=== PATIENT | female | born 2000 | race Caucasian/White ===

== ENCOUNTER 2020-11-10 18:57 | Emergency (ER) | payer OTHER ==
[~2020-11-10] VITALS: Ht 154.9 cm; Wt 65.7 kg
[2020-11-10] MEDS ORDERED: novalog SQ (20:07)
--- NOTE | 2020-11-11 01:17 | REPVR ---
PROCEDURE INFORMATION: Exam: CT Head Without Contrast Exam date and time: 11/11/2020 12:31 AM Age: 20 years old Clinical indication: Injury or trauma; Fall; Concussion/head injury TECHNIQUE: Imaging protocol: Computed tomography of the head without contrast. Radiation optimization: All CT scans at this facility use at least one of these dose optimization techniques: automated exposure control; mA and/or kV adjustment per patient size (includes targeted exams where dose is matched to clinical indication); or iterative reconstruction. COMPARISON: No relevant prior studies available. FINDINGS: Brain: No intracranial mass, mass effect or midline shift. No acute intracranial hemorrhage. No CT evidence of acute cortical infarct. Ventricles, cisterns, and sulci are normal in size for age. Paranasal sinuses: Imaged paranasal sinuses are normally aerated. Mastoid air cells: Mastoid air cells and middle ear structures are normally aerated. Orbital cavity: Imaged orbits are unremarkable. Bones/joints: No calvarial fracture or destructive process. Soft tissues: No focal extracranial soft tissue swelling. IMPRESSION: No acute or concerning focal intracranial abnormality. Electronically signed by: Gennaro Lloyd On 11/11/2020 01:17:25 AM
--- NOTE | 2020-11-11 01:18 | REPVR ---
PROCEDURE INFORMATION: Exam: XR Left Forearm Exam date and time: 11/11/2020 12:48 AM Age: 20 years old Clinical indication: Other: Trauma TECHNIQUE: Imaging protocol: XR Left forearm. Views: 2 views. COMPARISON: No relevant prior studies available. FINDINGS: Bones/joints: Bones are aligned normally. No fracture, bone lesion or osteochondral abnormality. Joint spaces of the elbow and wrist are maintained. Soft tissues: No apparent focal soft tissue swelling. No opaque foreign body. IMPRESSION: Normal radiographic series of the forearm. Electronically signed by: Gennaro Lloyd On 11/11/2020 01:18:14 AM
[2020-11-11 02:00] VITALS: BP 123/72
== END 2020-11-11 02:08 | disposition home or self-care (01) ==
LOC: M ED 18:57
DX: R55 Syncope and collapse (principal); S00.83XA Contusion of other part of head, initial encounter; S50.12XA Contusion of left forearm, initial encounter; W18.39XA Other fall on same level, initial encounter; Y92.89 Other specified places as the place of occurrence of the external cause; E10.9 Type 1 diabetes mellitus without complications; Z79.4 Long term (current) use of insulin; Z88.1 Allergy status to other antibiotic agents; Z88.2 Allergy status to sulfonamides; Z88.8 Allergy status to other drugs, medicaments and biological substances; Z91.040 Latex allergy status

== ENCOUNTER 2020-11-14 14:29 | Emergency (ER) | payer OTHER ==
[~2020-11-14] VITALS: Ht 152.4 cm; Wt 66.2 kg
[~2020-11-14 14:29] MED LIST: novalog SQ
[2020-11-14 14:30] VITALS: BP 142/86
[2020-11-14] MEDS ORDERED: NOVOINJ3 SC (15:17)
[2020-11-14] MEDS ORDERED: ACET-683 PO (15:17)
[2020-11-14 17:46] LABS: BASO % 0.4 % (0.0-1.0); EOS # 0.1 10^3/uL (0.0-0.5); EOS % 0.8 % (0.0-3.0); HEMATOCRIT 39.5 % (36.0-47.0); HEMOGLOBIN 13.8 g/dl (12.0-15.5); LYMPH # 2.8 10^3/uL (1.5-5.0); LYMPH % 36.7 % (24.0-44.0); MEAN CORPUSCULAR HEMOGLOBIN 30.8 pg (27.0-33.0); MEAN CORPUSCULAR HGB CONC 34.9 g/dl (32.0-36.5); MEAN CORPUSCULAR VOLUME 88.2 fl (80.0-96.0); MONO # 0.5 10^3/uL (0.0-0.8); NEUTROPHILS # 4.2 10^3/uL (1.5-8.5); PLATELET COUNT, AUTOMATED 229 10^3/uL (150-450); RED BLOOD COUNT 4.48 10^6/uL (4.00-5.40); WHITE BLOOD COUNT 7.6 10^3/uL (4.0-10.0)
[2020-11-14 18:14] LABS: BLOOD UREA NITROGEN 9 MG/DL (7-18); CALCIUM LEVEL 8.7 MG/DL (8.5-10.1); CARBON DIOXIDE LEVEL 27 MEQ/L (21-32); CHLORIDE LEVEL 105 MEQ/L (98-107); CREATININE FOR GFR 0.64 MG/DL (0.55-1.30); GLOMERULAR FILTRATION RATE > 60.0 (>60); GLUCOSE, FASTING 246 MG/DL (70-100); POTASSIUM SERUM 4.2 MEQ/L (3.5-5.1); SODIUM LEVEL 137 MEQ/L (136-145)
--- NOTE | 2020-11-14 18:34 | REPVR ---
PROCEDURE INFORMATION: Exam: CT Abdomen And Pelvis Without Contrast Exam date and time: 11/14/2020 6:00 PM Age: 20 years old Clinical indication: Abdominal pain; Additional info: Left flank pain, hematuria, dysuria TECHNIQUE: Imaging protocol: Computed tomography of the abdomen and pelvis without contrast. Radiation optimization: All CT scans at this facility use at least one of these dose optimization techniques: automated exposure control; mA and/or kV adjustment per patient size (includes targeted exams where dose is matched to clinical indication); or iterative reconstruction. COMPARISON: No relevant prior studies available. FINDINGS: Liver: Normal. No mass. Gallbladder and bile ducts: There has been a cholecystectomy. Pancreas: Normal. No ductal dilation. Spleen: Normal. No splenomegaly. Adrenal glands: Normal. No mass. Kidneys and ureters: Normal. No hydronephrosis. Stomach and bowel: There is increased feces throughout the colon consistent with constipation. Appendix: No evidence of appendicitis. Intraperitoneal space: Unremarkable. No free air. No significant fluid collection. Vasculature: Unremarkable. No abdominal aortic aneurysm. Lymph nodes: Unremarkable. No enlarged lymph nodes. Urinary bladder: Unremarkable as visualized. Reproductive: Unremarkable as visualized. Bones/joints: Unremarkable. No acute fracture. Soft tissues: Unremarkable. IMPRESSION: 1. There has been a cholecystectomy. 2. There is increased feces throughout the colon consistent with constipation. Electronically signed by: Kojo Morris On 11/14/2020 18:33:06 PM
[2020-11-14] MEDS ORDERED: CEPH500C PO (18:56)
[2020-11-14] MEDS ORDERED: CEPHALEXIN 500 MG CAP PO ONE (19:05)
== END 2020-11-14 19:49 | disposition home or self-care (01) ==
LOC: M ED 14:29
DX: N39.0 Urinary tract infection, site not specified (principal); E10.9 Type 1 diabetes mellitus without complications; K90.0 Celiac disease; Z88.1 Allergy status to other antibiotic agents; Z88.2 Allergy status to sulfonamides; Z88.8 Allergy status to other drugs, medicaments and biological substances; Z91.040 Latex allergy status; Z79.4 Long term (current) use of insulin

== ENCOUNTER 2021-01-24 06:11 | Day surgery (SDC) | payer OTHER ==
[~2021-01-24] VITALS: Ht 152.4 cm; Wt 64.9 kg
[~2021-01-24 06:11] MED LIST changes: +ACET-683 PO; +ACETAMINOPHEN 650 MG SUPP PR ONE; +CEPH500C PO; +LR 1,000 ML IV ONE; +NOVOINJ3 SC; +SERT50TA29 PO
--- OUTSIDE RECORDS SUMMARY | 2021-01-24 06:14 | CCD ---
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 Operator Name Role Phone Talita Lugo Unavailable Unavailable TURRIN, ANIL Unavailable Unavailable TURRIN, ANIL Unavailable Unavailable TURRIN, ANIL Unavailable Unavailable TURRIN, ANIL Unavailable Unavailable FishBeverley MD Unavailable Unavailable Fish, B Michelle REED Unavailable Unavailable Fish, Beverley Martinez MD Unavailable Unavailable Fish, B Michelle REED Unavailable Unavailable Fish, Beverley Martinez MD Unavailable Unavailable Fish, Beverley Martinez MD Unavailable Unavailable FishBeverley MD Unavailable Unavailable FishBeverley MD Unavailable Unavailable Fish B Michelle REED Unavailable Unavailable Fish B Michelle REED Unavailable Unavailable Fish B Michelle REED Unavailable Unavailable Fish B Michelle REED Unavailable Unavailable Fish B Michelle REED Unavailable Unavailable Fish B Michelle REED Unavailable Unavailable Fish B Michelle REED Unavailable Unavailable Fish B Michelle REED Unavailable Unavailable Fish B Michelle REED Unavailable Unavailable Fish B Michelle REED Unavailable Unavailable Fish B Michelle REED Unavailable Unavailable Fish B Michelle REED Unavailable Unavailable Fish, B Michelle REED Unavailable Unavailable Fish B Michelle REED Unavailable Unavailable Fish B Michelle REED Unavailable Unavailable Fish B Michelle REED Unavailable Unavailable Fish B Michelle REED Unavailable Unavailable Fish B Michelle REED Unavailable Unavailable Fish B Michelle REED Unavailable Unavailable Fish B Michelle REED Unavailable Unavailable Fish B Michelle REED Unavailable Unavailable Fish B Michelle REED Unavailable Unavailable Fish B Michelle REED Unavailable Unavailable Fish B Michelle REED Unavailable Unavailable Fish B Michelle REED Unavailable Unavailable Fish B Michelle REED Unavailable Unavailable Fish B Michelle REED Unavailable Unavailable Fish B Michelle REED Unavailable Unavailable Fish B Michelle REED Unavailable Unavailable Fish, Beverley Martinez MD Unavailable Unavailable Fish, B Michelle REED Unavailable Unavailable Fish, B Michelle REED Unavailable Unavailable Fish, B Michelle REED Unavailable Unavailable Fish, B Michelle REED Unavailable Unavailable Fish, B Michelle REED Unavailable Unavailable Fish, B Michelle REED Unavailable Unavailable Fish, B Michelle REED Unavailable Unavailable Fish, B Michelle REED Unavailable Unavailable Fish, B Michelle REED Unavailable Unavailable Fish, B Michelle REED Unavailable Unavailable Fish, B Michelle REED Unavailable Unavailable Fish, B Michelle REED Unavailable Unavailable Fish, B Michelle REED Unavailable Unavailable Fish, B Michelle REED Unavailable Unavailable Fish, B Michelle REED Unavailable Unavailable Fish, B Michelle REED Unavailable Unavailable Fish, B Michelle REED Unavailable Unavailable Fish, B Michelle REED Unavailable Unavailable Fish, B Michelle REED Unavailable Unavailable Fish, B Michelle REED Unavailable Unavailable Fish, B Michelle REED Unavailable Unavailable Fish, B Michelle REED Unavailable Unavailable Fish, B Michelle REED Unavailable Unavailable Fish, B Michelle REED Unavailable Unavailable Fish, B Michelle REED Unavailable Unavailable Fish, B Michelle REED Unavailable Unavailable Fish, B Michelle REED Unavailable Unavailable FREED, [facility] Unavailable Unavailable BUMBANAC, A STAR PRINCIPAL STATISTICAL SCIENTIST Unavailable Unavailable BUMBANAC, A STAR PRINCIPAL STATISTICAL SCIENTIST Unavailable Unavailable BUMBANAC, A STAR PRINCIPAL STATISTICAL SCIENTIST Unavailable Unavailable [place], A STAR PRINCIPAL STATISTICAL SCIENTIST Unavailable Unavailable [place], A STAR PRINCIPAL STATISTICAL SCIENTIST Unavailable Unavailable [place]UM[place], A STAR PRINCIPAL STATISTICAL SCIENTIST Unavailable Unavailable BUMBA[place], A STAR PRINCIPAL STATISTICAL SCIENTIST Unavailable Unavailable [place], A STAR PRINCIPAL STATISTICAL SCIENTIST Unavailable Unavailable [place], A STAR PRINCIPAL STATISTICAL SCIENTIST Unavailable Unavailable [place], A STAR PRINCIPAL STATISTICAL SCIENTIST Unavailable Unavailable [place], A STAR PRINCIPAL STATISTICAL SCIENTIST Unavailable Unavailable [place], A STAR PRINCIPAL STATISTICAL SCIENTIST Unavailable Unavailable [place], A STAR PRINCIPAL STATISTICAL SCIENTIST Unavailable Unavailable [place], A STAR PRINCIPAL STATISTICAL SCIENTIST Unavailable Unavailable [place], A STAR PRINCIPAL STATISTICAL SCIENTIST Unavailable Unavailable [place], A STAR PRINCIPAL STATISTICAL SCIENTIST Unavailable Unavailable [place], A STAR PRINCIPAL STATISTICAL SCIENTIST Unavailable Unavailable [place], A STAR PRINCIPAL STATISTICAL SCIENTIST Unavailable Unavailable [place], A STAR PRINCIPAL STATISTICAL SCIENTIST Unavailable Unavailable [place], A STAR PRINCIPAL STATISTICAL SCIENTIST Unavailable Unavailable [place], A STAR PRINCIPAL STATISTICAL SCIENTIST Unavailable Unavailable [place], A STAR PRINCIPAL STATISTICAL SCIENTIST Unavailable Unavailable [place], A STAR PRINCIPAL STATISTICAL SCIENTIST Unavailable Unavailable [place], A STAR PRINCIPAL STATISTICAL SCIENTIST Unavailable Unavailable [place], A STAR PRINCIPAL STATISTICAL SCIENTIST Unavailable Unavailable [place], A STAR PRINCIPAL STATISTICAL SCIENTIST Unavailable Unavailable [place], A STAR PRINCIPAL STATISTICAL SCIENTIST Unavailable Unavailable BUMBANAC, A STAR PRINCIPAL STATISTICAL SCIENTIST Unavailable Unavailable BUMBA[place]C, A STAR PRINCIPAL STATISTICAL SCIENTIST Unavailable Unavailable B[place]C, A STAR PRINCIPAL STATISTICAL SCIENTIST Unavailable Unavailable BUMBANAC, A STAR PRINCIPAL STATISTICAL SCIENTIST Unavailable Unavailable Re-disclosure Warning The records that you are about to access may contain information from federally-assisted alcohol or drug abuse programs. If such information is present, then the following federally mandated warning applies: This information has been disclosed to you from records protected by federal confidentiality rules (42 CFR part 2). The federal rules prohibit you from making any further disclosure of this information unless further disclosure is expressly permitted by the written consent of the person to whom it pertains or as otherwise permitted by 42 CFR part 2. A general authorization for the release of medical or other information is NOT sufficient for this purpose. The Federal rules restrict any use of the information to criminally investigate or prosecute any alcohol or drug abuse patient.The records that you are about to access may contain highly sensitive health information, the redisclosure of which is protected by Article 27-F of the [facility] Public Health law. If you continue you may have access to information: Regarding HIV / AIDS; Provided by facilities licensed or operated by the [facility] Office of Mental Health; or Provided by the [facility] Office for People With Developmental Disabilities. If such information is present, then the following [facility] mandated warning applies: This information has been disclosed to you from confidential records which are protected by state law. State law prohibits you from making any further disclosure of this information without the specific written consent of the person to whom it pertains, or as otherwise permitted by law. Any unauthorized further disclosure in violation of state law may result in a fine or snf sentence or both. A general authorization for the release of medical or other information is NOT sufficient authorization for further disc losure. Encounters Encounter Providers Location Date Indications Data Source(s ) Emergency Attender: ANIL COOPERConsultant: ENRIQUE GALLEGO 01/02/2021 03:00:00 AM EST - 01/02/2021 04:22:00 AM EST [facility] Patient discharged. Outpatient Attender: Talita THOMPSON 04:49:21 PM EDT - 11/10/2020 06:03:28 PM EDT [facility] ([facility]) Outpatient Attender: Michelle Walker MD Physical Therapy 11/06 01:00:00 PM EDT [facility] ([facility]) Outpatient Attender: MILDRED FUNES NP 10/13 01:59:00 PM EDT - 10/13/2020 01:59:00 PM EDT [facility] Medications Medication Brand Name Start Date Product Form Dose Route Admi nistrative Instructions Pharmacy Instructions Status Indications Reaction Description Data Source(s) Contour Next Blood Glucose Monitoring System 11/06/2020 12:0 0:00 AM EDT active [facility] ([facility]) Glucagon 1 MG Injection Glucagon Emergency 11/06/2020 12:00:00 AM EDT active [facility] ([facility]) Freestyle Lizandro 2/[place]/Flash Glucose Monitoring System 11/06/2020 12:00:00 AM EDT active [facility] ([facility]) Freestyle Lizandro 2/Sensor/Flash Glucose Monitoring System 11/06/2020 12:00:00 AM EDT active [facility] ([facility]) Contour Next Blood Glucose Test 11/06/2020 12:00:00 AM EDT active [facility] ([facility]) NITROFURANTOIN, MACROCRYSTALS 25 MG / Ni trofurantoin, Monohydrate 75 MG Oral Capsule [Macrobid] Macrobid 10/17/2020 12:00:00 AM EDT ORAL active [facility] ([facility]) Cephalexin 500 MG Oral Capsule Cephalexin 10/13/2020 12:00:00 AM EDT ORAL completed [facility] ([facility]) Sulfamethoxazole 800 MG / Trimethoprim 160 MG Oral Tablet [B actrim] Bactrim DS 10/13/2020 12:00:00 AM EDT completed [facility] ([facility]) Cephalexin 500 MG Oral Capsule Cephalexin 10/13/2020 12:00:00 AM EDT ORAL active [facility] ([facility]) Insurance Providers Payer name Policy type / Coverage type Policy ID Covered green party ID Covered green party's relationship to leigh Policy Leigh Plan Information ELADIO DELACRUZ/ELADIO [id number] Spouse 01 [id number] [facility] [id number] 2 [id number] LOCATED WITHIN [facility] - O/P [id number] 18 [id number] LOCATED WITHIN [facility] CO UNAVAILABLE 01 UNAVAILABLE Problems, Conditions, and Diagnoses Code Display Name Description Problem Type Effective Dates Data Source(s) Z9641 Presence of insulin pump (external) (int ernal) Presence of insulin pump (external) (internal) Diagnosis 01/02/2021 03:00:00 AM [facility] 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 Surgeries/Procedures Procedure Description Date Indications Data Source(s) Diabetic Foot Exam 11/06/2020 12:00:00 AM EDT [facility] ([facility] ) OFFICE CONSULTATION NEW/ESTAB PATIENT 60 MIN 12:00:00 AM EDT [facility] ([facility] OFFICE OUTPATIENT NEW 30 MINUTES 10/13/2020 12:00:00 A M EDT [facility] ([facility]) Results ID Date Data Source [id number] 01/02/2021 03:00:00 AM [facility] 1 OrderSheet [facility] Emergency Department [address] [place] [address] Phone #: ext- [phone] 01/02/2021 03:00 Patient: CHRISTINE DUQUE Sex: F : 2000 Age: 20yWEIGHT:62.5 kg (S) HEIGHT:60 inches (S) BMI:26.9ALLERGIES: ErythromycinCHIEF COMPLAINT: dysuriaDIAGNOSIS: Urinary tract infectious diseaseLAB ORDERSOrder Description Priority Entered Acknowledged InitialedUA Reflex to UA STAT 03:14 01/02 03:20 Anil Shah RN, M.D.;HCG Urine Qual STAT 03:14 01/02/2021 03:20 Anil Guzman RN, M.D.;Culture, Urine STAT 03:14 01/02/2021 03:20 Richy(Urine, Clean Anil Cooper) Araseli;DIAGNOSTIC STUDY ORDERSOrder Description Priority Entered Acknowledged InitialedMEDICATION/IV/DRIP/FLUID ORDERSOrder Description Priority Entered Acknowledged InitialedcefTRIAXone IM 04:09 01/02/2021 04:13 Vggjwu5986 mg Anil Cooper RN, M.D.;Pyridium PO 200 04:09 01/02/2021 04:19 Richymg Anil Cooper RN, M.D.;GENERAL ORDERSOrder Description Priority Entered Acknowledged InitialedAccucheck 03:17 01/02/2021 03:20 Anil Guzman RN, M.D.;[Electronically signed by Richy Snow RN (04:22 01/02/2021)][Electronically signed by Anil Cooper M.D. (06:47 01/02/2021)][Electronically locked by Richy Snow RN (04:22 01/02/2021)] 2 OrderSheet [facility] Emergency Department [address] [place] [address] Phone #: ext- [phone] 01/02/2021 03:00 Patient: CHRISTINE DUQUE Sex: F : 2000 Age: 20y Name Value Range Interpretation Code Description Data Shira rce(s) Supporting Document(s) ID Date Data Source [id number] 01/02/2021 03:00:00 AM EST [facility] 1 Medication Reconciliation Report [facility] Emergency Department [address] [place] [address] Phone #: ext- [phone] 01/02/2021 03:00 Patient: CHRISTINE DUQUE Sex: F : 2000 Age: 20yWeight: 62.5 kgHeight/Length: 60 in.BMI: 26.9ALLERGIES: ErythromycinThe patient's Home Medications are listed below:CONTINUE TAKING THE FOLLOWING MEDICATIONS: Novolog insulin pump Zoloft Oral (50 mg) 1 tablet, dailyThe source(s) of the original Home Medication information:patientThe following Medications were given to the patient in the Emergency Department:Ceftriaxone [IM] IM 1 gm, administered: 04:13 01/02/2021yridium [PO] PO 200 mg, administered: 04:19 01/02/2021The following Medications were prescribed to the patient:cefdinir 300 mg capsule Take 1 capsule twice a day for 7 days -- Dispense 14 capsule. Refills: 0.Substitution permitted.Pharmacy - [facility] [employer] [place] [id number] [facility] ; [place] [address]. Phone: .Pyridium 100 mg tablet Take 1 tablet three times a day for 3 days -- Dispense 9 tablet. Refills: 0.Substitution permitted.Pharmacy - [facility] [id number] [facility] ; [place] [address]. . -- Anil Cooper M.D. Name Value Range Interpretation Code Description Data [facility] rce(s) Supporting Document(s) ID Date Data Source [id number] 01/02/2021 03:00:00 AM [facility] 1 Medication Administration Record [facility] Emergency Department [address] [place] [address] Phone #: ext- [phone] 01/02/2021 03:00 Patient: CHRISTINE DUQUE Sex: F : 2000 Age: 20yWeight: 62.5 kgHeight/Length: 60 inBMI: 26.9ALLERGIES: Erythromycin Date/Time Medication Administered Medication OrderedGiven CEFTRIAXONE [IM] cefTRIAXone IM 1000 mg04:13 01/02/2021 Dose: 1 gm IMSteeris Snow RNGiven PYRIDIUM [PO] (PHENAZOPYRIDINE Pyridium PO 200 mg04:19 01/02/2021 HCL)Richy Snow RN Dose: 200 mg Tablets PO Name Value Range Interpretation Code Description Data Shira rce(s) Supporting Document(s) ID Date Data Source [id number] 01/02/2021 03:00:00 AM [facility] 1 General Instructions [facility] Emergency Department [address] [place] [address] Phone #: ext [phone] 01/02/2021 03:00 Patient: CHRISTINE DUQUE Sex: F : 2000 Age: 20yAcute urinary tract infection with cystitis. No hematuria.IN STRUCTIONSAlternate Tylenol (Acetaminophen) or Motrin (Ibuprofen) for fever, temperature greater than 102 degreesorally. Take according to label instructions.Drink plenty of fluids.Warnings: Further evaluation is necessary. It is very important to follow up with a healthcare provider.GENERAL WARNINGS: Return or contact your physician immediately if your condition worsens orchanges unexpectedly, if not improving as expected, or if other problems arise. Specifically return if pain,vomiting, bleeding, breathing difficulty or fever greater than 102 degrees F and not controlled byacetaminophen or ibuprofen.Your Current Medications: Your current home medications have been reviewed.CONTINUE TAKING THE FOLLOWING MEDICATIONS:Novolog insulin pump*.Zoloft Oral : Tablet 50 mg, 1 tablet daily.Prescription Medications:cefdinir 300 mg capsule Take 1 capsule twice a day for 7 days -- Dispense 14 capsule. Refills: 0.Substitution permitted.Pharmacy - [facility] [id number] [facility] ; [place] [address]. .Pyridium 100 mg tablet Take 1 tablet three times a day for 3 days -- Dispense 9 tablet. Refills: 0.Substitution permitted.Pharmacy - [facility] [id number] [facility] ; [place] [address]. .Follow-up:Return to the emergency department as needed. Follow up with your healthcare provider in five dayseven if well. Call for an appointment. Reason for referral: evaluation and treatment. Summary of careprovided to patient via paper.Understanding of the discharge instructions verbalized by patient. Expected course of illness, dischargeinstructions, activity level, diet, prescriptions x2, follow-up appointment and risks and benefits of treatmentreviewed with patient and understanding verbalized. Agrees to plan of care. 2 General Instructions [facility] Emergency Department [address] [place] [address] Phone #: ext- [phone] 01/02/2021 03:00 [id number] Sex: F : 2000 Age: 20y ADDITIONAL INFORMATIONBladder Infection, Female (Adult)Urine normally doesn't have any germs (bacteria) in it. But bacteria can get into the urinary tract fromthe skin around the rectum. Or they can travel in the blood from other parts of the body. Once theyare in your urinary tract, they can cause infection in these areas: The urethra (urethritis) The bladder (cystitis) The kidneys (pyelonephritis)The most common place for an infection is in the bladder. This is called a bladder infection. This isone of the most common infections in women. Most bladder infections are easily treated. They arenot serious unless the infection spreads to the kidney.The terms bladder infection, UTI, and cystitis are often used to describe the same thing. But they arenot always the same. Cystitis is an inflammation of the bladder. The most common cause of cystitis isan infection.SymptomsThe infection causes inflammation in the urethra and bladder. This causes many of the symptoms. 3 General Instructions [facility] Emergency Department [address] [place] [address] Phone #: ext- [phone] 01/02/2021 03:00 Patient: CHRISTINE DUQUE Sex: F : 2000 Age: 20yThe most common symptoms of a bladder infection are: Pain or burning when urinating Having to urinate more often than normal Urgent need to urinate Only a small amount of urine comes out Blood in urine Belly (abdominal) discomfort. This is often in the lower belly above the pubic bone. Cloudy urine Strong- or bad-smelling urine Unable to urinate (urinary retention) Unable to hold urine in (urinary incontinence) Fever Loss of appetite Confusion (in older adults)CausesBladder infections are not contagious. You c an't get one from someone else, from a toilet seat, orfrom sharing a bath.The most common cause of bladder infections is bacteria from the bowels. The bacteria get onto theskin around the opening of the urethra. From there, they can get into the urine. Then they travel up tothe bladder, causing inflammation and infection. This often happens because of: Wiping incorrectly after urinating. Always wipe from front to back. Bowel incontinence Procedures such as having a catheter put in Older age Not emptying your bladder. This can give bacteria a chance to grow in your urine. Fluid loss (dehydration) 4 General Instructions [facility] Emergency Department [address] [place] [address] Phone #: ext- [phone] 01/02/2021 03:00 Patient: CHRISTINE DUQUE Sex: F : 2000 Age: 20y Constipation Having sex Using a diaphragm fo r controlTreatmentBladder infections are diagnosed by a urine test and urine culture. They are treated with antibiotics.They often clear up quickly without problems. Treatment helps prevent a more serious kidneyinfection.MedicinesMedicines can help in the treatment of a bladder infection: Take antibiotics until they are used up, even if you feel better. It's important to finish them to make sure the infection has cleared. You can use acetaminophen or ibuprofen for pain, fever, or discomfort, unless another medicine was prescribed. If you have long-term (chronic) liver or kidney disease, talk with your healthcare provider before using these medicines. Also talk with your provider if you've ever had a stomach ulcer or GI (gastrointestinal) bleeding, or are taking blood-thinner medicines. If you are given phenazopydridine to reduce burning with urination, it will make your urine a bright orange color. This can stain clothing.Care and preventionThese self-care steps can help prevent future infections: Drink plenty of fluids. This helps to prevent dehydration and flush out your bladder. Do this unless you must restrict fluids for other health reasons, or your a [facility] provider told you not to. Clean yourself correctly after going to the bathroom. Wipe from front to back after using the toilet. This helps prevent the spread of bacteria. Urinate more often. Don't try to hold urine in for a long time. Wear loose-fitting clothes and cotton underwear. Don't wear tight-fitting pants. Improve your diet and prevent constipation. Eat more fresh fruits and vegetables, and fiber. Eat less junk foods and fatty foods. Don't have sex until your symptoms are gone. 5 General Instructions [facility] Emergency Department [address] [place] [address] Phone #: ext- [phone] 01/02/2021 03:00 Patient: CHRISTINE DUQUE Sex: F : 2000 Age: 20y Don't have caffeine, alcohol, and spicy foods. These can irritate your bladder. Urinate right after you have sex to flush out your bladder. If you use control pills and have frequent bladder infections, discuss it with your healthcare provider.Follow-up careCall your healthcare provider if all symptoms are not gone after 3 days of treatment. This is especiallyimportant if you have repeat infections.If a culture was done, you will be told if your treatment needs to be changed. If directed, you cancall to find out the results.If X-rays were done, you will be told if the results will affect your treatment.Call [phone] if any of the following occur: Trouble breathing Hard to wake up or confusion Fainting (loss of consciousness) Fast heart rateWhen to get medical adviceCall your healthcare provider right away if any of these occur: Fever of 100.4F (38.0C) or higher, or as directed by your healthcare provider Symptoms are not better after 3 days of treatment Back or belly pain that gets worse Repeated vomiting, or unable to keep medicine down Weakness or dizziness Vaginal discharge Pain, redness, or swelling in the outer vaginal area (labia) [id number] [employer]. [address] [place] [address], [place] [address]. All rights reserved. This information is not intended as asubstitute for professional medical care. Always follow your healthcare professional's instructions. 6 General Instructions [facility] Emergency Department [address] [place] [address] Phone #: ext- [phone] 01/02/2021 03:00 Patient: CHRISTINE DUQUE Sex: F : 2000 Age: 20yFever Control (Adult)A fever is a normal reaction of your body to an illness. The temperature itself usually isn't harmful. Itactually helps your body fight infections. You don't need to treat a fever unless you feel veryuncomfortable.H ome careFollow these tips to take care of yourself at home: If you feel warm, check your temperature. Dress in light clothing. This will help you lose extra body heat through your skin. The fever will go up if you wear extra layers or wrap in blankets. Fever causes your body to lose water through evaporation. Drink plenty of fluids. These include water, juice, clear sodas, adelita amarilis, or lemonade.Fever medicinesYou can take acetaminophen every 4 to 6 hours if: You feel very uncomfortable Your oral temperature is 100.4F (38C) or higherIf you can't take or keep down oral medicine, ask your pharmacist for acetaminophen suppositories.You don't need a prescription for these.If the fever doesn't get better within 1 hour after you take acetaminophen, take ibuprofen. If thisworks, keep taking the ibuprofen every 6 to 8 hours.If you have chronic liver or kidney disease, talk with your healthcare provider before taking thesemedicines. Also talk with your provider if you ever had a stomach ulcer or GI (gastrointestinal)bleeding.If either medicine alone doesn't keep the fever down, you may switch off between the 2 medicinesevery 3 to 4 hours. But do this only if your healthcare provider has told you to. For example, takeibuprofen. Wait 3 hours. Then take acetaminophen. Wait 3 hours. Take ibuprofen, and so on. Followyour provider's instructions exactly.Don't give aspirin to anyone younger than age 19 who is ill with a fever. Aspirin can cause seriousside effects such as liver damage and Eugenia syndrome. Although rare, Eugenia syndrome is a veryserious illness usually found in children younger than age 15. The syndrome is closely linked to theuse of aspirin or aspirin-containing medicine during viral infection. 7 General Instructions [facility] Emergency Department [address] [place] [address] Phone #: ext- [phone] 01/02/2021 03:00 Patient: CHRISTINE DUQUE Sex: F : 2000 Age: 20yFollow-up careFollow up with your healthcare provider if you don't get better after 48 hours.When to seek medical adviceCall your healthcare provider right away if any of these occur: Fever, as directed by your healthcare provider, or: o Fever of 100.4F (38C) or above lasting for 24 to 48 hours o Fever lasting more than 3 days, even without other symptoms o Fever that happens after visiting a foreign country o Fever that happens within a month after visiting a country with malaria. Malaria is a serious illness. A fever can still be malaria even if you took medicine to prevent it. The medicine does not work in all cases o If you experience unexplained fever and your immune system is compromised such as by immune suppressing drugs, stem cell or organ transplant, HIV/AIDS, or cancer Confusion or trouble thinking Headache or stiff neck Flat, small, purplish red spots on your skin Low blood pressure Fast heart rate Fast (rapid) breathing You are You just had surgery, another medical procedure, or were just discharged from the hospital Use of medicines that suppress the immune system (immunosuppressants). These include steroids like prednisone, cancer medicines, and organ transplant rejection medicines. If you are not sure about whether your medicines suppress your immune system, ask your healthcare provider.Call 911Someone should call 911 if you: Are having trouble breathing or shortness of breath 8 General Instructions [facility] Emergency Department [address] [place] [address] Phone #: ext- [phone] 01/02/2021 03:00 Patient: CHRISTINE DUQUE Sex: F : 2000 Age: 20y Are unresponsiveImportant reminderCall your healthcare provider if you get a fever after visiting a place where infectious diseases arecommon. Many people citrus picker a cold or other virus while traveling. This usually goes away without aproblem. But, some places have more serious diseases. Fever with certain other symptoms maymean you have a serious illness. Symptoms to watch for include diarrhea, skin rashes, insect bites,and skin boils, or infections. Your provider may ask you: What you did on your trip How long you were there Where you travelled and where you stayed (hotel, [place] house, tent) What you ate and drank If you were bitten by insects or other bugs If you swam in freshwater If you had sex or got a tattoo or piercing while you were thereCheck the CDC to get more information about specific infectious diseases in the areas you havetraveled. 6550-[address] [employer]. [address] [place] [address]. All rights reserved. This information is not intended as asubstitute for professional medical care. Always follow your healthcare professional's instructions. You have been given the following additional information: Bladder Infection, Female (Adult) Fever Control (Adult)(Electronically signed by Anil Cooper M.D. 01/02/2021 06:47) Name Value Range Interpretation Code Description Data Shira rce(s) Supporting Document(s) ID Date Data Source [id number] 01/02/2021 03:00:00 AM EST [facility] 1 Clinical Report - Nurses [facility] Emergency Department [address] [place] [address] Phone #: ext- [phone] 01/02/2021 03:00 Patient: CHRISTINE DUQUE Sex: F : 2000 Age: 20yTRIAGEArrived by private vehicle. Historian: patient.Triage time: 03:05 01/02/2021. Acuity: LEVEL 4.Chief Complaint: PAINFUL URINATION, URGENCY and FREQUENCY.This started yesterday. ( stared felling symptoms this morning and they have been gradually gettingworse. 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 SEPSIS SCREEN NEGATIVE. No suspected or confirmedsigns of infection present. --03:14 01/02/21 Richy Snow RN03:05 01/02/21. BP: 123/79 (regular adult cuff) taken on the left arm, via an automated monitor, whilesitting. MAP: 93. HR: 87 (regular, normal rate and strong). RR: 16 (regular, unlabored and normal). T0ueyzyhswwv: 99% on room air. Temp: 97.6 F (oral). Pain level now: 5/10. --03:14 01/02/21 Richy Snow RN.Weight: 62.5 kg stated. Height/Length: 60 inches Per Patient. BMI: 26.9. --03:04 01/02/21 Richy Snow RN.MedicationsNovolog insulin pump. --03:01/02/21 Richy Snow RN Zoloft Oral (Tablet 50 mg) 1 tablet, daily. --03:01/02/21 Richy Snow RN.AllergiesErythromycin.(rash) --03:16 01/02/21 Rizwana Snow R.N.PROBLEMS:Diabetes Mellitus.Depression. --03:01/02/21 Richy Snow RN.Medication/allergy information source: the patient. --03:14 01/02/21 Richy Snow RN.ADDITIONAL SURGERIES:no known surgeries.History 2 Clinical Report - Nurses [facility] Emergency Department [address] [place] [address] Phone #: ext- [phone] 01/02/2021 03:00 Patient: CHRISTINE DUQUE Sex: F : 2000 Age: 20y PAST MEDICAL HX: Immunizations: up-to-date. Last normal menstrual period was 2 weeks ago. SURGERY HX: No history of previous surgery. SOCIAL HX: Never smoker. No alcohol use or drug use. She was offered HIV testing but declined and hepatitis C testing but declined. She has not traveled outside the [place] Infectious disease exposure: No infectious disease exposure. SELF HARM ASSESSMENT: Self harm assessment was performed. The patient answered "no" to the question(s) "Have you recently felt down, depressed, or hopeless?", "Do you have thoughts of harming or killing yourself?", "Do you have a plan for harming or killing yourself?", "Have you recently had thoughts about harming or killing others?", "Do you have any dangerous items in your possession?", "Have you noticed less interest or pleasure in doing things?", "Are you here because you tried to hurt yourself?" and "Have you ever tried to hurt yourself before today?". ABUSE ASSESSMENT: No report of abuse. FALL RISK ASSESSMENT: Fall risk assessment completed. No risk factors identified. --03:14 01/02/21 Richy Snow RN. Assessment The patient states feels the same. --03:01/02/21 Richy Snow RN.PHYSICAL ASSESSMENTAmbulatory to room.GENERAL / NEURO / PSYCH: Alert. Oriented X 4. Appears in no acute distress.HEENT: Mucous membranes are pink.RESPIRATORY: Respirations not labored. Breath sounds within normal limits.CVS: Capillary refill less than 2 seconds.GI / : Abdomen soft and nontender. Bowel sounds within normal limits. Pain with urination. She hashad frequency of urination. Urgency of urination.SKIN: Skin is warm and dry. --03:14 01/02/21 Richy Snow RN.NURSING PROGRESS NOTESPatient gowned. Reassurance given. Call light placed in reach. Bed placed in lowest position. Brakesof bed on. Patient ready for evaluation- ED physician notified. --03:14 01/02/21 Richy Snow RN Checked patient name and birthdate: patient confirmed. Instructions provided to collect clean catch urine and patient verbalized understanding. Clean catch urine collected with return of cloudy urine; sample sent to lab for urinalysis and culture. --03:17 01/02/21 Rizwana Snow R.N. Point of Care Testing: Performed by nurse. Finger stick glucose: 160 mg/dL. Result shown to the ED physician. --03:22 01/02/21 Rizwana Snow R.N. 04:13 01/02/2021 Ceftriaxone IM 1 gm given. Given in the right deltoid. --04:13 01/02/21 Richy Snow, 3 Clinical Report - Nurses [facility] Emergency Department [address] [place] [address] Phone #: ext- [phone] 01/02/2021 03:00 -- Patient: CHRISTINE DUQUE Sex: F : 2000 Age: 20y RN 04:19 01/02/2021 Pyridium (Phenazopyridine HCl) PO Tablets 200 mg given. Allergies verified and confirmed 5 rights. Information reviewed with patient including reason for taking this medication, signs of allergic reaction and precautions. Verbalizes understanding. --04:19 01/02/21 Richy Snow RN.DISPOSITION / DISCHARGE [place] Coma Scale: 15- eyes open- spontaneous (4); best verbal response- oriented (5); best motor response- obeys commands (6). Departure time: 04:21 01/02/2021. Condition at departure: improved. No learning barriers present. Discharge instructions provided and reviewed with the patient. Reviewed medication(s) side effects, precautions, dosing and course information. Prescription(s) sent electronically to pharmacy. Reviewed fever ca re instructions. Reviewed referral to family practice for followup. Reviewed need for increased fluid intake. Spouse verbalized understanding. Written instructions provided in Serbian. The patient was discharged home. She left ambulatory and via private vehicle. Patient driving. --04:01/02/21 Richy Snow RN 04:19 01/02/21. BP: 122/71. MAP: 88. HR: 76 (regular, normal rate and strong). RR: 16 (regular, unlabored and normal). O2 saturation: 98% on room air. Temp: 97.4 F (oral). Pain level now: 06/03. --04:01/02/21 Richy Snow RN Departure time: 04:01/02/2021. --04:01/02/21 Richy Snow RN.Locked/Released at 01/02/2021 04:22 by Richy Snow RN Name Value Range Interpretation Code Description Data Shira rce(s) Supporting Document(s) ID Date Data Source [id number] 01/02/2021 03:00:00 AM [facility] 1 Clinical Report - Physicians/Mid Levels [facility] Emergency Department [address] [place] [address] Phone #: ext- [phone] 01/02/2021 03:00 [id number] Sex[facility] F : 2000 Age: 20y Time Seen: 03:05 01/02/2021; initial patient contact. Arrived- By private vehicle. Historian- patient. Disposition decision: 04:10 01/02/2021.HISTORY OF PRESENT ILLNESS Chief Complaint: DYSURIA. This started yesterday and still present. The symptoms are described as moderate. Modifying factors- worsened by urination. Not relieved by anything. The patient has had intermittent suprapubic pelvic pain, described as "pain". She has had mild right-sided and left-sided lower back pain. No abnormal bleeding or vaginal discharge. She has had severe pain with urination. It is described as "painful", has occurred during and after urination and has been associated with urgency and frequency. The patient has had moderate urinary frequency with previous similar symptoms. She has had moderate urgency of urination. Denies current p regnancy. Similar symptoms previously. Patient has had similar symptoms many times. ( has Hx of recurrent UTI's, last 6 weeks ago, took Cephalexin). Recent medical care: Not recently seen/assessed.REVIEW OF SYSTEMSThe patient has had mild nausea. No vomiting, diarrhea, black stools, headache or fever. No chills,anorexia, eye discomfort, cough or difficulty breathing. No chest pain, skin rash, enlarged lymph nodes orjoint pain. All other systems reviewed and are negative.PAST HISTORYSee nurses notes. Problems: Celiac Disease. Diabetes Mellitus. Depression. Additional Surgeries: no known surgeries. Medications: Zoloft Oral (Tablet 50 mg) 1 tablet, daily. Novolog insulin pump. Allergies: Erythromycin.(rash). 2 Clinical Report - Physicians/Mid Levels [facility] Emergency Department [address] [place] [address] Phone #: ext- [phone] 01/02/2021 03:00 Patient: CHRISTINE DUQUE Sex: F : 2000 Age: 20ySOCIAL HISTORYNever smoker. No alcohol use or drug use. No recent travel.ADDITIONAL NOTESThe nursing notes have been reviewed with agreement regarding the chief complaint, HPI, ROS, PMH andpatient medications and allergies.PHYSICAL EXAMVital Signs: 01/02/2021 03:05 BP: sitting 123/79. MAP: 93. HR: 87. RR: 16. O2 saturation: 99% on roomair. Temp: 97.6 F. Pain level now: 5/10. Have been reviewed. Oxygen saturation normal.Appearance: Alert. Oriented X3.HEENT: Normal external inspection.ENT: Pharynx normal.Neck: Neck supple.CVS: Heart sounds normal.Respiratory: No respiratory distress. Painless inspiration. Breath sounds normal. Chest nontender.Abdomen: Soft. Mild tenderness in the suprapubic area and lower abdomen. No guarding or reboundtenderness. Bowel sounds normal. No organomegaly. No mass.Back: Mild CVA tenderness on the right and left. Normal external inspection.Skin: Skin warm and dry. Normal skin color. No rash. Normal skin turgor.Extremities: Extremities nontender. No lower extremity edema.Neuro: Oriented X 3. Mood/affect normal. No motor deficit.LABS, X-RAYS, AND EKGLaboratory Tests: Laboratory tests have been ordered, with results reviewed and considered in themedical decision making process. UA REFLEX TO UA CULTURE: (YASMEEN: 01/02/2021 03:17) ( MsgRcvd 01/02/2021 03:29) Final results Test Result Flag Units (Reference) UA REFLEX TO UA CULTURE URINALYSIS SOURCE R COLOR yellow (NORMAL: Yello CLARITY hazy (NORMAL: Clear SPEC GRAVITY 1.005 (1.001 - 1.030 pH 7 (5 - 9) GLUCOSE NORM (NORMAL: Negat BILIRUBIN NEG (NORMAL: Negat KETONE NEG (NORMAL: Negat PROTEIN 15 (NORMAL: Negat NITRITE NEG (NORMAL: Negat BLOOD 250 A (NORMAL: Negat LEUK EST 500 A (NORMAL: Negat UROBILINOGEN NOR (less than 1.0 MICROSCOPIC See Below WBC 40 - 50 A (NORMAL: NONE RBC 1 - 3 (NORMAL: NONE EPI THELIAL MANY A (NORMAL: NONE BACTERIA 1+ SMALL (NORMAL: NONE 3 Clinical Report - Physicians/Mid Levels [facility] Emergency Department [address] [place] [address] Phone #: ext- [phone] 01/02/2021 03:00 [id number] Sex: F : 2000 Age: 20y MUCOUS 2+ A (NORMAL: NONE Beta-HCG, Qual Urine: (YASMEEN: 01/02/2021 03:17) ( MsgRcvd 01/02/2021 03:30) Final results Test Result Flag Units (Reference) HCG URINE QUAL NEGATIVE (NORMAL: NEGAT HCG URINE QL REENTER NEGATIVE (NORMAL: NEGAT { KIT LOT # [id number] ){ KIT EXP DATE 03-26-22 ){ PROCEDURAL CONTROL VALID ) . Bedside Tests: Glucose normal - 160 (performed at bedside).PROGRESS AND PROCEDURESCourse of Care: 04:09 01/02/21. UA results c/w UTI, will culture and treat accordingly; d/c instructionsgiven, pt understands and agrees. Patient counseled in person regarding the patient's stable condition, test results, diagnosis and need for follow-up. Patient agrees with plan of care. Disposition: Condition: good and stable. Discharge decision based on the following: patient's condition is stable; patient's condition is improved; patient is ambulatory; patient is active; patient drinking fluids; patient eating; patient's pain is controlled; patient's exam is improved; no seriously abnormal test results; improving condition on multiple repeat evaluations; social support is good; transportation is available; follow-up is available; clinical impression is consistent with outpatient treatment.CLINICAL IMPRESSION Acute urinary tract infection with cystitis. No hematuria.INSTRUCTIONS Alternate Tylenol (Acetaminophen) or Motrin (Ibuprofen) for fever, temperature greater than 102 degrees orally. Take according to label instructions. Drink plenty of fluids. Warnings: Further evaluation is necessary. It is very important to follow up with a healthcare provider. GENERAL WARNINGS: Return or contact your physician immediately if your condition worsens or changes unexpectedly, if not improving as expected, or if other problems arise. Specifically return if pain, vomiting, bleeding, breathing difficulty or fever greater than 102 degrees F and not controlled by acetaminophen or ibuprofen. 4 Clinical Report - Physicians/Mid Levels [facility] Emergency Department [address] [place] [address] Phone #: ext- [phone] 01/02/2021 03:00 [id number] Sex: F : 2000 Age: 20y Your Current Medications: Your current home medications have been reviewed. CONTINUE TAKING THE FOLLOWING MEDICATIONS: Novolog insulin pump*. Zoloft Oral : Tablet 50 mg, 1 tablet daily. Prescription Medications: cefdinir 300 mg capsule Take 1 capsule twice a day for 7 days -- Dispense 14 capsule. Refills: 0. Substitution permitted. Pharmacy - [facility] [place] [address] [facility] ; [place] [address]. FaxNumber: . Pyridium 100 mg tablet Take 1 tablet three times a day for 3 days -- Dispense 9 tablet. Refills: 0. Substitution permitted. Pharmacy - [facility] [address] [facility] ; [place] [id number]. . Follow-up: Return to the emergency department as needed. Follow up with your healthcare provider in five days even if well. Call for an appointment. Reason for referral: evaluation and treatment. Summary of care provided to patient via paper. Understanding of the discharge instructions verbalized by patient. Expected course of illness, discharge instructions, activity level, diet, prescriptions x2, follow-up appointment and risks and benefits of treatment reviewed with patient and understanding verbalized. Agrees to plan of care.(Electronically signed by Anil Cooper M.D. 01/02/2021 06:47) Name Value Range Interpretation Code Description Data Shira rce(s) Supporting Document(s) ID Date Data Source [id number] 01/06/2021 06:32:00 AM EST [facility] Name Value Range Interpretation Code Description Data Shira rce(s) Supporting Document(s) CULTURE URINE [facility] _CULTURE URINE_$$[id number]$$[id number]$$[id number]$$[id number]$$[id number]$$[id number]$$[id number]$$[id number]$$324975$$ 330999$$070065$$032560$$939789$$570244$$688215$$339735$$248143$$219068$$152550$$ 096268$$452700$$095515$$376362$$920417$$413233$$228611$$[id number] -- Continued on next page --Patient: DUNIA KING Order: Page 2Culture: CULTURE URINE Status: Final ==== -- Continued on next page --Patient: DUNIA KING Order: Page 2Culture: CULTURE URINE Status: Prelim =====$$[id number] DATE/TIME: 01/05/2021 13:06Culture: CULTURE URINE Status: FinalUrine Culture,Comprehensive: P1No growth in 36 - 48 hours. Previous result entered on 01/04/2021 09:46 ET No growth after 18-24 hours.P1 [facility]: [facility] Im[facility]da KHAN #: [id number] [address] [place] [address] [id number] [facility] [address]Medical Director : Saurav Lowery MD NPI #:Lab Di tonya : 01/04/[email or web address].SENT REF 01/06/21.0632.XMT.SENT REF ID Date Data Source [id number] 01/02/2021 03:29:00 AM EST [facility] Name Value Range Interpretation Code Description Data Shira rce(s) Supporting Document(s) HCG URINE QUAL NEGATIVE NORMAL: NEGATIVE [facility] HCG URINE QL REENTER NEGATIVE NORMAL: NEGATIVE Ca [facility] { KIT LOT # [id number] ){ KIT EXP DATE 03-26-22 ){ PROCEDURAL CONTROL VALID ) ID Date Data Source [id number] 01/02/2021 03:28:00 AM EST [facility] Name Value Range Interpretation Code Description Data Shira rce(s) Supporting Document(s) UA REFLEX TO UA CULTURE [facility] URINALYSIS SOURCE R [facility] COLOR yellow NORMAL: Yellow [facility] CLARITY hazy NORMAL: Clear [facility] Specific gravity of Urine by Test strip 1.005 1.001 - 1.030 [facility] pH 7 5 - [facility] Gl[facility] [Mass/volume] in Urine by Test strip NORM NORMAL: Negat [facility] Bilirubin.total [Presence] in Urine by Test strip NEG NORMAL: Negative [facility] Ketones [Presence] in Urine by Test strip NEG NORMAL: Negative [facility] Protein [Mass/volume] in Urine by Test strip 15 NORMAL: Negat [facility] Nitrite [Presence] in Urine by Test strip NEG NORMAL: Negative [facility] BLOOD 250 NORMAL: Negative [facility] Leukocyte esterase [Presence] in Urine by Test strip [address]: Negative [facility] Urobilinogen [Mass/volume] in Urine by Test strip NOR less cristin n 1.0 mg/dL [facility] MICROSCOPIC See Below [facility] ital WBC 40 - 50 NORMAL: NONE SEEN A [facility] Erythrocytes [#/volume] in Urine by Test strip 1 - 3 NORMAL: NON E SEEN [facility] EPITHELIAL MANY NORMAL: NONE SEEN A [facility] Bacteria [Presence] in Urine sediment by Light microscopy 1+ SMALL NORMAL: NONE SEEN [facility] Mucus [Presence] in Urine sediment by Light microscopy 2+ NOR MAL: NONE SEEN A [facility] ID Date Data Source [id number] 10/20/2020 08:14:00 AM EDT [facility] Name Value Range Interpretation Code Description Data Shira rce(s) Supporting Document(s) CULTURE URINE [facility] _CULTURE URINE_$$[id number]$$[id number]$$[id number]$$[id number]$$205179$$[id number]$$935041$$487065$$285171$$ 601271$$390501$$374009$$131754$$428426$$835461$$312753$$022284$$863297$$685961$$ 357485$$873876$$842229$$734778$$204051$$108224$$[id number]$$[id number] -- Continued on next page --Patient: DUNIA JUARESSEY Order: [id number] Page 2Culture: CULTURE URINE Status: Final ==== -- Continued on next page --Patient: DUNIA [place]K Order: [id number] Page 2Culture: CULTURE URINE Status: Prelim =====$$[id number] DATE/TIME: 10/19/2020 09:06Culture: CULTURE URINE Status: FinalIsolate 1 Staphylococcus epidermidis Flag: A . . . . . . .6Greater than 100,000 colony forming units per mLBased on susceptibility to oxacillin this isolate would besusceptible to:*Penicillinase-stable penicillins, such as: Cloxacillin, Dicloxacillin, Nafcillin*Beta-lactam combination agents, such as: Amoxicillin- clavulanic acid, Ampicillin-sulbactam, Piperacillin-tazobactam*Oral cephems, such as: Cefaclor, Cefdinir, Cefpodoxime, Cefprozil, Cefuroxime, Cephalexin, Loracarbef*Parenteral cephems, such as: Cefazolin, Cefepime, Cefotaxime, Cefotetan, Ceftaroline, Ceftizoxime, Ceftriaxone, Cefuroxime*Carbapenems, such as: Doripenem, Ertapenem, Imipenem, Meropenem Previous result entered on 10/16/2020 14:48 ET Microbiological testing to rule out the presence of possible pathogensis in progress.Urine Culture,Comprehensive: [id number] epidermidis Flag: APatient: DUNIA KING Order: [id number] Page 3Culture: CULTURE URINE Status: Final ====ISOLATE 1 Staphylococcus epidermidis Isolate 1Antibiotic JABARI IntUnits ug/mL Ciprofloxacin S S . . . . . .185-9Gentamicin S S . . . . . .267-5Levofloxacin S S . . . . . .08323-4Velgubvgt S S . . . . . .14685-2Acherocgqpycts S S . . . . . .363-2Oxacillin S S . . . . . .383- 0Penicillin R R . . . . . .6932-8Quinupristin/Dalfopristin S S . . . . . .34823-6Oxtqxfpk S S . . . . . .428-3Tetracycline S S . . . . . .496-0Trimethoprim/Sulfa S S . . . . . .516-5Vancomycin S S . . . . . 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 Operator : 10/16/20.1532.XMT.SENT REF 10/20/20.0815.XMT.SENT REF 10/20/20.0815.CM .to [facility] via fax ID Date Data Source [id number] 10/13/2020 02:37:00 PM EDT [facility] ([facility]) Name Value Range Interpretation Code Description Data Shira rce(s) Supporting Document(s) Choriogonadotropin.beta subunit ( test) [Pres ence] in Urine Laboratory test result [facility] ([facility]) ID Date Data Source [id number] 10/13/2020 02:37:00 PM EDT [facility] ([facility]) Name Value Range Interpretation Code Description Data Shira rce(s) Supporting Document(s) Appearance of Urine Laboratory test result [facility] ([facility]) Color of Urine Laboratory test result [facility] ([facility]) Spec [place] 1.025 1.001-1.030 [facility] ([facility]) pH of Urine by Test strip 5 5-9 [facility] NT ([facility]) Leukocytes Laboratory test result Above high normal [facility] ([facility]) Protein [Presence] in Urine by Test strip Laboratory test result [facility] ([facility]) Nitrate [Presence] in Urine Laboratory test result [facility] ([facility]) Inhouse Glucose 200 Above high normal ME [facility] ([facility]) Ketones [Presence] in Urine by Test strip Laboratory test result [facility] ([facility]) Urobilinogen Laboratory test result [facility] ([facility]) Bilirubin.total [Presence] in Urine by Test strip Laboratory test res ult [facility] ([facility]) Blood type and Indirect antibody screen panel - Blood [facility] Procedure Social History No Information Vital Signs ID Date Data Source UNK Name Value Range Interpretation Code Description Data Source(s) Systolic blood pressure 106 mm[Hg] 106 mm[Hg] M [facility] ([facility] ) Diastolic blood pressure 70 mm[Hg] 70 mm[Hg] [facility] ([facility] ) Heart rate 97 /min 97 /min [facility] ([facility] ) Body height 61.2 [in_i] 61.2 [in_i] [facility] ([facility] ) 5'1.20" Body weight 147.56 [lb_av] 147.56 [lb_av] MED[facility] T ([facility] ) Body mass index (BMI) [Ratio] 27.7 kg/m2 27.7 k g/m2 [facility] ([facility] ) Oxygen saturation in Arterial blood by Pulse oximetry 98 % 98 % [facility] ([facility] ) Systolic blood pressure 99 mm[Hg] 99 mm[Hg] M [facility] ([facility]) Diastolic blood pressure 68 mm[Hg] 68 mm[Hg] [facility] ([facility]) Heart rate 113 /min 113 /min [facility] ([facility]) Body temperature 97.2 [degF] 97.2 [degF] [facility] Oxygen saturation in Arterial blood by Pulse oximetry 99 % 99 % [facility] ([facility])
[2021-01-24] MEDS ORDERED: INSUH10VL (06:37)
[2021-01-24 07:02] LABS: HEMOGLOBIN 14.1 g/dl (12.0-15.5); MEAN CORPUSCULAR HGB CONC 34.4 g/dl (32.0-36.5); MEAN CORPUSCULAR VOLUME 90.1 fl (80.0-96.0); PLATELET COUNT, AUTOMATED 272 10^3/uL (150-450); RED BLOOD COUNT 4.55 10^6/uL (4.00-5.40); WHITE BLOOD COUNT 7.1 10^3/uL (4.0-10.0)
[2021-01-24 07:16] LABS: HEMOGLOBIN A1c 6.8 %
[2021-01-24 07:20] LABS: BLOOD UREA NITROGEN 11 MG/DL (7-18); CALCIUM LEVEL 8.6 MG/DL (8.5-10.1); CARBON DIOXIDE LEVEL 28 MEQ/L (21-32); CHLORIDE LEVEL 104 MEQ/L (98-107); CREATININE FOR GFR 0.64 MG/DL (0.55-1.30); GLOMERULAR FILTRATION RATE > 60.0 (>60); GLUCOSE, FASTING 169 MG/DL (70-100); HCG, SERUM QUANTITATIVE < 1.0 MIU/ML; POTASSIUM SERUM 4.1 MEQ/L (3.5-5.1); SODIUM LEVEL 139 MEQ/L (136-145)
[2021-01-24] MEDS ORDERED: MIDAZOLAM INJ 2MG/2ML VIAL (J2250 PER 1MG) As Ordered ONE (09:17)
[2021-01-24] MEDS ORDERED: propofoL 200 MG/20 ML VIAL As Ordered ONE (09:18)
[2021-01-24] MEDS ORDERED: ONDANSETRON 4MG/2ML VIAL As Ordered ONE (09:18)
[2021-01-24] MEDS ORDERED: LIDOCAINE 2% 100MG/5ML SDV (FOR ANES.) As Ordered ONE (09:18)
[2021-01-24] MEDS ORDERED: fentaNYL 100 MCG/2 ML INJECTION (J3010) As Ordered ONE ×2 (09:18→10:29)
[2021-01-24] MEDS ORDERED: ROCURONIUM BROMIDE 50 MG/5 ML VIAL As Ordered ONE (09:18)
[2021-01-24] MEDS ORDERED: dexameTHASONE 4 MG/ML 1ML VIAL (J1100 PER 1MG) As Ordered ONE (09:18)
[2021-01-24] MEDS ORDERED: BUPIVACAINE HCL 0.5% 30 ML VIAL As Ordered ONE (09:28)
[2021-01-24] MEDS ORDERED: ACETAMINOPHEN 650 MG SUPP As Ordered ONE (09:28)
[2021-01-24] MEDS ORDERED: LACRILUBE (AKWA TEARS) OPHTH OINT 3.5 GM As Ordered ONE (10:09)
[2021-01-24] MEDS ORDERED: SUGAMMADEX SODIUM 500 MG/5 ML VIAL (BRIDION) As Ordered ONE (10:11)
[2021-01-24] MEDS ORDERED: KETOROLAC 60MG 2ML VIAL As Ordered ONE (10:11)
[2021-01-24] MEDS ORDERED: HYDROMORPHONE HCL 0.5 MG/ 0.5 ML SYRINGE (J1170 PER 1) IV PRN (11:20)
[2021-01-24] MEDS ORDERED: oxyCODONE 5MG TAB PO PRN (11:20)
[2021-01-24] MEDS ORDERED: ONDANSETRON 4MG/2ML VIAL IV PRN (11:20)
[2021-01-24] MEDS ORDERED: LR 1,000 ML IV SCH (11:20)
[2021-01-24] MEDS: fentaNYL 100 MCG/2 ML INJECTION (J3010) IV PRN ×2 (11:41→11:49)
[2021-01-24] MEDS ORDERED: ACETAMINOPHEN *IV* 1,000 MG IV ONE ×2 (12:30)
[2021-01-24 13:37] VITALS: BP 107/58
--- NOTE | 2021-01-31 12:38 | RO ---
OPERATIVE NOTE DATE OF OPERATION: 01/24/2021 PREOPERATIVE DIAGNOSIS: Satisfied parity, type 1 diabetic. POSTOPERATIVE DIAGNOSIS: Satisfied parity, type 1 diabetic. PROCEDURE: SURGEON: Missael Cartwright MD COMMERCIAL INTERN: Dr. Desir (for extraction, retraction, visualization without which the procedure could not be completed). ANESTHESIA: General. ESTIMATED BLOOD LOSS: Less than 25 mL. DESCRIPTION OF PROCEDURE: After adequate time out prepped and draped in lithotomy position. Bladder was drained for 150 mL of clear urine. Weighted speculum in the vagina, single tooth tenaculum on the anterior lip of the cervix. Uterus sounded to depth of 7 cm. Uterine elevator was placed in the cervical canal. Re-prepping and draping, Veress needle applied. 3.8 liters of CO2 to flow rate of 14 to pressure of 15. With 0-degree scope camera 3 mm direct entry into the abdomen, no evidence of perforation, hemorrhage or bleeding. Panoramic review: Right upper quadrant was normal. Right round ligament was normal. Left upper quadrant was normal. Left round ligament was normal. Interestingly she had a bunch of melanie retroperitoneally on the right side, did not seem to be causing any issues and therefore they were left alone. The right ovary showed a ruptured corpus hemorrhagicum as recently as probably less than 24-48 hours ago. The patient's quantitative beta HCG was negative and she is breast feeding. The 8 mm port was placed on the left side. Bilateral Filshie clips were applied circumferentially around the tubes, good hemostasis was secured. Visualization again revealed that the tubes were still clamped with the Filshie clips. The cul-de-sac appeared to be clear and the uterosacrals appeared to be intact. The abdomen was deflated to 4 mm pressure. The 8 mm port was removed. The mainstem port was removed after deflating the pressure. Subcuticular stitches were placed. Marcaine 0.25% 3 mL in each incisional site. Surgical glue was placed. Instrument and pad counts were correct. All instruments and pads were removed from the patient. The patient was sent to recovery in good condition. Her blood sugar on leaving the operating theater was 100. cc: [place] [facility]
== END 2021-01-24 13:42 | disposition home or self-care (01) ==
LOC: M SDC 06:11
PROVIDERS: ATTEND Obstetrics & Gynecology
DX: Z30.2 Encounter for sterilization (principal); E10.9 Type 1 diabetes mellitus without complications; K58.9 Irritable bowel syndrome, unspecified; K90.0 Celiac disease; F41.9 Anxiety disorder, unspecified; F32.9 Major depressive disorder, single episode, unspecified; R56.9 Unspecified convulsions; J45.909 Unspecified asthma, uncomplicated; Z91.041 Radiographic dye allergy status; Z88.5 Allergy status to narcotic agent; Z88.1 Allergy status to other antibiotic agents; Z91.040 Latex allergy status; Z88.8 Allergy status to other drugs, medicaments and biological substances; Z79.899 Other long term (current) drug therapy; Z79.4 Long term (current) use of insulin; Z91.013 Allergy to seafood
CPT/HCPCS: 36415; 58671; 80048; 83036; 84702; 85027; A4264; J1100; J1885; J2250; J2405; J3010

== ENCOUNTER → 2021-01-27 | Outpatient (REF) | payer OTHER ==
[~2021-01-27] MED LIST changes: -ACETAMINOPHEN 650 MG SUPP PR ONE; +INSUH10VL; -LR 1,000 ML IV ONE
== END ==
LOC: M WUC 19:01
PROVIDERS: ATTEND Physician Assistant
DX: J06.9 Acute upper respiratory infection, unspecified (principal)

== ENCOUNTER → 2021-02-01 | Outpatient (REF) | payer OTHER ==
[2021-02-01 18:20] LABS: CREATININE, URINE 28.7 MG/DL; MALB URINE SIEMENS < 5.0 MG/L; MAU/CREAT RATIO 17.4 MCG/MG (0.0-30.0)
== END ==
LOC: M LAB REF 17:21
PROVIDERS: ATTEND Nurse Practitioner Family
DX: E10.649 Type 1 diabetes mellitus with hypoglycemia without coma (principal)

== ENCOUNTER → 2021-09-26 | Outpatient (REF) | payer OTHER | LOC: M LAB REF 16:13 | PROVIDERS: ATTEND Physician Assistant | DX: R50.9 Fever, unspecified (principal) ==

== ENCOUNTER → 2021-09-26 | Outpatient (REF) | payer OTHER | LOC: M LAB REF 16:12 | PROVIDERS: ATTEND Physician Assistant | DX: J02.9 Acute pharyngitis, unspecified (principal) ==

== ENCOUNTER 2022-04-09 00:17 | Emergency (ER) | payer OTHER ==
[~2022-04-09] VITALS: Ht 167.6 cm; Wt 64.1 kg
[2022-04-09] MEDS ORDERED: ONDA4TAB6 PO ×2 (00:24→02:00)
[2022-04-09] MEDS ORDERED: ONDANSETRON 4MG ORAL DISINTEGRATING TAB PO ONE (01:15)
[2022-04-09] MEDS ORDERED: IBUPROFEN 800 MG TAB PO ONE (01:15)
[2022-04-09 02:37] VITALS: BP 102/59
== END 2022-04-09 02:47 | disposition home or self-care (01) ==
LOC: M ED 00:17
DX: J10.89 Influenza due to other identified influenza virus with other manifestations (principal); E11.9 Type 2 diabetes mellitus without complications; Z79.4 Long term (current) use of insulin; Z88.2 Allergy status to sulfonamides; Z88.6 Allergy status to analgesic agent; Z88.1 Allergy status to other antibiotic agents; Z88.5 Allergy status to narcotic agent; Z88.8 Allergy status to other drugs, medicaments and biological substances; Z91.041 Radiographic dye allergy status; Z91.040 Latex allergy status; Z91.013 Allergy to seafood

== ENCOUNTER → 2022-08-06 | Outpatient (REF) | payer OTHER ==
[~2022-08-06] MED LIST changes: +ONDA4TAB6 PO
[2022-08-06 19:50] LABS: CREATININE, URINE 43.7 MG/DL
[2022-08-06 19:51] LABS: MALB URINE SIEMENS < 3.0 MG/L; MAU/CREAT RATIO 6.8 MCG/MG (0.0-30.0)
== END ==
LOC: M LAB REF 18:14
PROVIDERS: ATTEND Nurse Practitioner Family
DX: E10.649 Type 1 diabetes mellitus with hypoglycemia without coma (principal)

== ENCOUNTER → 2023-02-12 | Outpatient (REF) | payer OTHER ==
[2023-02-12 17:57] LABS: RSV AMPLIFICATION NEGATIVE (NEGATIVE)
== END ==
LOC: M LAB REF 16:19
PROVIDERS: ATTEND Nurse Practitioner Family
DX: J06.9 Acute upper respiratory infection, unspecified (principal)

== ENCOUNTER → 2023-12-09 | Outpatient (REF) | payer OTHER ==
[~2023-12-09] MED LIST changes: +ONDA-282 PO; -ONDA4TAB6 PO
== END ==
LOC: M LAB REF 09:45
PROVIDERS: ATTEND Nurse Practitioner Family
DX: R30.0 Dysuria (principal)

== ENCOUNTER → 2024-12-16 | Outpatient (REF) | payer OTHER ==
[2024-12-17 10:28] LABS: APPEARANCE, URINE MANUAL HAZY (CLEAR); COLOR, URINE MANUAL ORANGE (YELLOW)
[2024-12-17 10:30] LABS: BILIRUBIN, URINE MANUAL OBSCURED (NEGATIVE); BLOOD URINE MANUAL OBSCURED (NEGATIVE); GLUCOSE, URINE (UA) MANUAL OBSCURED mg/dL (NEGATIVE); KETONE, URINE MANUAL OBSCURED mg/dL (NEGATIVE); LEUKOCYTE ESTERASE, URINE MAN OBSCURED (NEGATIVE); NITRITE, URINE MANUAL OBSCURED (NEGATIVE); PH,URINE MAN OBSCURED UNITS (5.0 - 7.0); PROTEIN, URINE MANUAL OBSCURED mg/dL (NEGATIVE); UROBILINOGEN, URINE MANUAL OBSCURED mg/dl (NORMAL)
[2024-12-17 10:33] LABS: SPECIFIC GRAVITY,URINE MANUAL 1.005 (1.002-1.035)
[2024-12-17 10:49] LABS: BACTERIA, URINE MOD AMOUNT; HYALINE CAST, URINE NONE SEEN /lpf (0-1); RBC, URINE 0-1 /hpf (0-3); SQUAMOUS EPITHELIAL CELL URINE MOD AMOUNT /hpf (SMALL AMT)
== END ==
LOC: M LAB REF 12:18
PROVIDERS: ATTEND Nurse Practitioner Family
DX: R30.0 Dysuria (principal)